=== PATIENT | female | born 2000 | race Caucasian/White ===

== ENCOUNTER 2020-03-01 18:30 | Emergency (ER) | payer BC ==
[~2020-03-01] VITALS: Ht 167.6 cm; Wt 86.4 kg
[2020-03-01 19:20] VITALS: BP 132/74; PULSE 72; TEMP 97
== END 2020-03-01 19:27 | disposition home or self-care (01) ==
LOC: COL.ER 18:30
DX: S93.602A Unspecified sprain of left foot, initial encounter (principal); X50.1XXA Overexertion from prolonged static or awkward postures, initial encounter; Y99.0 Civilian activity done for income or pay

== ENCOUNTER 2022-10-07 15:09 | Emergency (ER) | payer BC ==
[~2022-10-07] VITALS: Ht 167.6 cm; Wt 96.4 kg
[2022-10-07 15:26] VITALS: TEMP 101.5
[2022-10-07 15:50] LABS: BASO # 0.1 K/mm3 (0.0-0.2); BASO % 0.4 % (0.0-2.0); GRAN # 13.8 K/mm3 (1.4-6.5); GRAN % 89.3 % (42.2-75.2); HEMATOCRIT 40.4 % (37.0-47.0); HEMOGLOBIN 13.9 g/dl (12.5-16.0); LYMPH # 0.7 K/mm3 (1.2-3.4); LYMPH % 4.6 % (20.0-51.0); MEAN CELL VOLUME 87 fl (80.0-100.0); MEAN CORPUSCULAR HEMOGLOBIN 30 pg (27-31); MEAN CORPUSCULAR HGB CONC 34 g/dl (33.0-37.0); MONO # 0.8 K/mm3 (0.1-0.6); MONO % 5.4 % (1.7-9.3); PLATELET COUNT 337 K/mm3 (130-400); RED BLOOD COUNT 4.62 M/mm3 (4.10-5.30)
[2022-10-07 16:06] LABS: COLLECTION METHOD CLEAN CATCH
[2022-10-07 16:10] LABS: ALBUMIN 4.3 gm/dL (3.5-5.0); BILIRUBIN,TOTAL 0.3 mg/dL (0.2-1.2); CREATININE, serum 0.85 mg/dL (0.57-1.11); POTASSIUM 3.6 mmol/L (3.5-4.5); TOTAL PROTEIN 8.5 gm/dL (6.2-8.1)
[2022-10-07 16:18] LABS: SQUAMOUS EPITHELIAL 0-2 /hpf (0-10); URINE BACTERIA Rare /hpf (NONE SEEN); URINE RBC 20-50 /hpf (0-2)
[2022-10-07 16:22] LABS: PH 5.5 (5.0-8.5); URINE APPEARANCE Clear (CLEAR/HAZY); URINE BLOOD 2+ (NEGATIVE); URINE COLOR Yellow (YELLOW); URINE GLUCOSE Negative (NEGATIVE); URINE KETONE Negative (NEGATIVE); URINE NITRATE Negative (NEGATIVE); URINE PROTEIN(semi-quant) Negative (NEGATIVE); URINE UROBILINOGEN 0.2 E.U/dL (0.2-1.0)
[2022-10-07 17:13] LABS: STREP SCREEN NEGATIVE
[2022-10-07] MEDS ORDERED: ZOFRAN ODT4 MG PO (17:42)
[2022-10-07 18:18] VITALS: BP 104/54; PULSE 118
== END 2022-10-07 18:30 | disposition home or self-care (01) ==
LOC: COL.ER 15:09
PROVIDERS: Physician Assistant
DX: R50.9 Fever, unspecified (principal); E86.0 Dehydration; R11.0 Nausea; D72.829 Elevated white blood cell count, unspecified; R79.1 Abnormal coagulation profile; Z20.822 Contact with and (suspected) exposure to COVID-19; Z28.310 Unvaccinated for COVID-19
CPT/HCPCS: J2405; J7030; Q9967